=== PATIENT | female | born 1985 | race Caucasian/White ===

== ENCOUNTER → 2019-10-29 10:53 | Outpatient (CLI) | payer BC, SELFPAY ==
--- NOTE | ~2019-10-29 | XR_ITS ---
XR UGIAC w kub DATE: 10/29/2019 11:43 INDICATION: Gastroesophageal reflux, epigastric pain, nausea TECHNIQUE: Air-contrast upper gastrointestinal series 2.8 minutes fluoroscopy time 13.667 DAP 91 images COMPARISON: None FINDINGS: Normal deglutition and esophageal peristalsis. Posterior gastric fundic diverticulum, measuring up to approximately 4.5 x 5 cm dimension. No hiatal hernia is demonstrated. No gastroesophageal reflux was observed during the procedure. No stricture, mucosal fold thickening, erosion, ulceration or intraluminal mass lesion of the esophag us, stomach or duodenum is detected. The proximal small bowel mucosal pattern appears normal. IMPRESSION: Approximately 4.5 x 5 cm posterior gastric fundal tic diverticulum Reviewed, dictated and finalized at [facility]. Reviewed, dictated and finalized at [facility].
== END ==
PROVIDERS: Visit Provider Emergency Medicine
DX: K21.9 Gastro-esophageal reflux disease without esophagitis (principal)
CPT/HCPCS: 74246

== ENCOUNTER → 2019-11-02 08:26 | Outpatient (CLI) | payer BC, SELFPAY ==
--- NOTE | ~2019-11-02 | US_ITS ---
US abdomen complete EXAMINATION: US Abdomen Complete INDICATION: Generalized abdominal pain PROCEDURE: Realtime High Resolution abdomen ultrasound. COMPARISON: No prior studies for comparison FINDINGS: Gallbladder within normal limits. No gallstones, pericholecystic fluid, gallbladder wall t hickening or biliary dilatation. Common bile duct measures 2.4 mm. Liver echotexture within normal limits without focal mass. Pancreas within normal limits. Pancreati c tail is obscured by bowel gas. Spleen is unremarkeable. Renal echotexture is within normal limits bilaterally without hydronephrosis, contour deforming mass or renal stone. Right kidney measures 9 cm . Left kidney measures 10 cm. Visualized aspects of the aorta and IVC are within normal limits. Portal vein is patent. No sonograph ic Soriano's sign indicated by the technologist. IMPRESSION: 1: Normal abdominal ultrasound. Reviewed, dictated and finalized at location [facility].
== END ==
PROVIDERS: PCP Emergency Medicine; Visit Provider Emergency Medicine
DX: R10.9 Unspecified abdominal pain (principal)
CPT/HCPCS: 76700

== ENCOUNTER 2020-09-25 00:48 | Day surgery (SDC) | payer BC, SELFPAY ==
[2020-09-18 10:49] VITALS: BMI 22.1
[2020-09-25 08:11] VITALS: BP 123/84; PULSE 89; RESP 16; TEMP 36.7; O2SAT 100
[2020-09-25] MEDS: LACTATED RINGERS 1,000 ML 150 ML IV CONT (08:14)
--- NOTE | 2020-09-25 09:18 | PM.HPGS ---
History of Present Illness History of Present Illness Consent: Risks, benefits, and alternatives have been discussed and questions answered. Patient agrees to proceed with procedure. Chief complaint: GERD Narrative: Marguerite Barnhart is a 35 year old female with gerd controlled with protonix but symptomatic if stops the med, also bloating and burping, abdominal ultrasound was jamison. Esophagram showed diverticula in fundus stomach. Never had egd Review of Systems Constitutional: Constitutional: Denies headache(s) and Denies weakness Eyes: Eyes: Denies blurry vision ENT: Reports Normal hearing present, Denies headache(s) and Denies neck pain Cardiovascular: Cardiovascular: Denies chest pain and Denies dyspnea Respiratory: Respiratory: Denies dyspnea Gastrointestinal: Gastrointestinal: Reports no additional gastrointestinal complaints Genitourinary: Genitourinary: Denies dysuria Musculoskeletal: Musculoskeletal: Denies neck pain Integumentary/Breasts: Skin/Breast: Denies dry skin Neurologic: Reports Normal hearing present, Denies headache(s) and Denies weakness Psychiatric: Psychiatric: Denies anxiety Endocrine: Endocrine: Denies change in body appearance Hematologic/Lymphatic: Hematologic/Lymphatic: Denies easy bleeding Allergic/Immunologic: Allergic/Immunologic: Denies urticaria PMFSH Past Medical History Medical History (Updated 09/25/20 @ 09:20 by Jeremy Cook MD) Anxiety Bloating Depression GERD (gastroesophageal reflux disease) Social History Social History Smoking status: Never smoker Alcohol intake: never Substance use: never Substance use type: does not use Living arrangements: with family Spiritual care concerns: No Meds Home Medications and Allergies Home Medications Medication Instructions Recorded Confirmed Type pantoprazole 40 mg PO DAILY 09/18/20 09/25/20 History Allergies Allergy/AdvReac Type Severity Reaction Status Date / Time No Known Allergies Allergy Verified 09/25/20 08:10 Vital Signs Vital Signs - 24 hr 09/25/20 08:11 Temperature 98.1 F Pulse Rate 89 Respiratory Rate 16 Blood Pressure 123/84 Pulse Oximetry 100 Exam Const: General: comfortable and no acute distress HENMT: General nose exam: Normal nares present Eyes: General: appearance normal, both eyes and all related structures Neck: Neck: no JVD Resp: Auscultation: clear to auscultation bilaterally Cardio: Rate: regular rate Rhythm: regular rhythm GI: Inspection: non-distended GI Palp: Yes Soft to palpation Skin: General skin exam: normal color Neuro: General: gait normal Speech: normal speech Extrem: General: normal to inspection Psych: Mental Status: mental status grossly normal Assessment and Plan Assessment and plan (1) Bloating: Code(s): R14.0 - Abdominal distension (gaseous) Status: Acute Assessment and Plan: egd with bx- assess for celiac (2) GERD (gastroesophageal reflux disease): Code(s): K21.9 - Gastro-esophageal reflux disease without esophagitis Status: Inactive Assessment and Plan: egd
--- NOTE | 2020-09-25 09:32 | P.PNAN_ITS ---
Anes - Initial Pre Proc Eval Procedure: Operation Date: 09/25/20 09:30 Proposed Procedures p Esophagogastroduodenoscopy - Jeremy Cook MD Date/Time: 09/25/20 09:32 Surgeon: Jeremy Cook MD Pre Op Diagnosis: GERD Patient Data Age: 35 Gender: F Height: 1.47 m Weight: 48.7 kg Last Vital Signs Temp 98.1 F 09/25/20 08:11 Pulse 89 09/25/20 08:11 Resp 16 09/25/20 08:11 BP 123/84 09/25/20 08:11 Pulse Ox 100 09/25/20 08:11 Allergies Allergy/AdvReac Type Severity Reaction Status Date / Time No Known Allergies Allergy Verified 09/25/20 08:10 Home Medications Medication Instructions Recorded Confirmed Type pantoprazole 40 mg PO DAILY 09/18/20 09/25/20 History Patient hx anesthesia problems: none Family hx anesthesia problems: none [facility] Past Medical History Medical History (Updated 09/25/20 @ 09:20 by Jeremy Cook MD) Anxiety Bloating Depression GERD (gastroesophageal reflux disease) Social History Social History Smoking status: Never smoker Alcohol intake: never Substance use: never Substance use type: does not use Living arrangements: with family Spiritual care concerns: No Anes - Eval Final PreProcedure Day of Procedure 09/25/20 09:32 Patient weight: normal Heart: regular rate and rhythm Lungs: clear to auscultation Airway: Mallampati scale class II Neurological: alert and oriented Last oral intake: >/= 8 hours ASA classification: II Emergent: no Anesthetic plan: proceed Anesthesia type and monitoring: general GIVS and standard monitoring Informed Consent: The patient's anesthetic plan and its attendant risks and benefits were discussed with the patient/family/POA. Questions were solicited and answers provided to the satisfaction of the patient/family/POA.
[2020-09-25 09:37] VITALS: BP 91/53; PULSE 53; RESP 21; O2SAT 99
[2020-09-25 09:47] VITALS: BP 93/55; PULSE 58; RESP 21; O2SAT 100
[2020-09-25 09:57] VITALS: BP 120/71; PULSE 57; RESP 15; O2SAT 100
== END 2020-09-25 10:12 | disposition home or self-care (01) ==
PROVIDERS: PCP Emergency Medicine; Visit Provider Internal Medicine Gastroenterology
PROC: 0DJ08ZZ Inspection of Upper Intestinal Tract, Via Natural or Artificial Opening Endoscopic (ICD-10-PCS; CPT 43235; principal; 2020-09-25 09:30)
DX: K21.9 Gastro-esophageal reflux disease without esophagitis (principal); R14.0 Abdominal distension (gaseous); K31.4 Gastric diverticulum; F41.8 Other specified anxiety disorders
CPT/HCPCS: 43239; 88305; J2001; J2704; J7120

== ENCOUNTER 2023-05-21 11:43 | Emergency (ER) | payer BC, SELFPAY ==
[2023-05-21 12:13] VITALS: BP 113/76; PULSE 84; RESP 16; TEMP 36.8; O2SAT 100
[2023-05-21 12:15] VITALS: BP 117/81; PULSE 84; RESP 16; TEMP 37.2; O2SAT 98
--- NOTE | 2023-05-21 12:48 | ED.URI ---
HPI - URI/Sore Throat General Chief Complaint: Upper Respiratory Infection Stated Complaint: CHEST CONGESTION/SORE THROAT/BODY ACHES/TIRED Time Seen by Provider: 05/21/23 12:20 Source: patient Mode of arrival: ambulatory Limitations: no limitations History of Present Illness HPI Narrative: Arline is a 38-year-old female patient presenting to clinic today with complaints congestion, sore throat, body aches, fatigue x1 day. She denies any known fever, chills, or body aches. MD elicited complaint: sore throat and nasal congestion Related Data Allergies Allergy/AdvReac Type Severity Reaction Status Date / Time No Known Allergies Allergy Verified 05/21/23 12:14 Review of Systems Review of Systems: Pertinent positives per HPI. Patient denies any fever, chills, rash, headache, visual changes, dizziness, shortness of breath, chest pain, palpitations, nausea, vomiting, diarrhea, constipation, abdominal pain, or any urinary issues. PMFSH Past Medical History Medical History Anxiety Bloating Depression GERD (gastroesophageal reflux disease) Headache PCOS (polycystic ovarian syndrome) Surgical History Surgical History H/O section 2015 H/O dilation and curettage History of tonsillectomy 1988 Family History Family History Mother Lung cancer Sibling Diabetes mellitus Depression Social History Social History Smoking status: Never smoker Alcohol intake: never Substance use: never Substance use type: does not use Do You Feel Safe in your Home?: No Lack of Transportation: No Lack of Food: Never True Current Housing: I Have Housing Concerned About Future Housing: No Difficulty Paying Gas/Electric Bills: No Difficulty Paying for Meds: No Currently Unemployed: No Education: High School Diploma/GED Difficulty w/ Childcare or Family Care: No Living arrangements: with family Spiritual care concerns: No Comments At the time of my signature, I reviewed and agree with the nursing past medical, surgical, social, and family history. There is no relevant family history pertinent to the patient complaint. Exam Narrative: General: Well-developed, well nourished, in no apparent distress Head: Normocephalic, atraumatic Eyes: Pupils equally round and reactive to light bilaterally, EOM intact, sclera and conjunctive clear, no discharge, lids normal Ears: TMs intact and clear, ear canals clear, no drainage, grossly hearing normal. Nose: Nares patent, no discharge, no inflammation, no sinus tenderness. Mouth: Oral pharynx without lesions or masses, good dentition, MMM. Neck: Supple, trachea midline, no enlargement of anterior or posterior cervical nodes, no thyroid masses or goiter palpable. Cardio: Regular rate and rhythm, s1 and s2 normal, no murmur appreciated. Resp: Clear to auscultation bilaterally, no rhonchi, rales, wheezing or rubs Course Course Emergency Course: Portions of this record may have been created with voice recognition software. Level of Care: Express Care Visit Vital Signs Vital signs: Vital Signs Temperature 36.8 C 05/21/23 12:13 Pulse Rate 84 05/21/23 12:13 Respiratory Rate 16 05/21/23 12:13 Blood Pressure 113/76 05/21/23 12:13 Pulse Oximetry 100 05/21/23 12:13 Temperature 37.2 C 05/21/23 12:15 Pulse Rate 84 05/21/23 12:15 Respiratory Rate 16 05/21/23 12:15 Blood Pressure 117/81 05/21/23 12:15 Pulse Oximetry 98 05/21/23 12:15 Vital signs reviewed MDM - URI/Sore Throat MDM Narrative Medical decision making narrative: At the time of visit patient is resting comfortably on the exam table. Patient appears to be nontoxic. Labs: COVID and influenza testing was n
== END 2023-05-21 12:56 | disposition home or self-care (01) ==
PROVIDERS: Emergency Provider Nurse Practitioner Family; PCP Emergency Medicine
DX: J06.9 Acute upper respiratory infection, unspecified (principal); B34.9 Viral infection, unspecified; Z20.822 Contact with and (suspected) exposure to COVID-19; K21.9 Gastro-esophageal reflux disease without esophagitis; E28.2 Polycystic ovarian syndrome; F41.9 Anxiety disorder, unspecified; F32.A Depression, unspecified
CPT/HCPCS: 87426; 87804; 99213; G0463

== ENCOUNTER 2023-11-28 13:34 | Outpatient (CLI) | payer BC, SELFPAY ==
--- NOTE | ~2023-11-28 | XR_ITS ---
EXAMINATION: XR ankle RT min 3V DATE: 11/28/2023 13:47 INDICATION: Unspecified injury of right ankle, initial encounter. Right ankle pain. TECHNIQUE: 4 views of right ankle were obtained. COMPARISON: None. FINDINGS: Alignment is normal. No fracture. Joint spaces are normal. IMPRESSION: 1. No fracture. Reviewed, dictated and finalized at location [facility]. IMPRESSION: 1. No fracture.
== END 2023-11-28 13:35 | disposition home or self-care (01) ==
PROVIDERS: PCP Emergency Medicine; Visit Provider Emergency Medicine
DX: S99.911A Unspecified injury of right ankle, initial encounter (principal); X58.XXXA Exposure to other specified factors, initial encounter
CPT/HCPCS: 73610